=== PATIENT | male | born 1965 | race Caucasian/White ===

== ENCOUNTER 2020-05-06 19:54 | Inpatient (IN) ==
[2020-05-06] MEDS ORDERED: HYDROmorphone INJ 1 MG/ML SYRINGE IV PRN (20:26)
[2020-05-06] MEDS ORDERED: ONDANSETRON INJ 2 MG/ML 2 ML VIAL IV STA (20:26)
[2020-05-06] MEDS ORDERED: SODIUM CHLORIDE 0.9% 1000ML 1,000 ML IV SCH (20:30)
[2020-05-06 20:39] LABS: Basophils # (auto) 0.05 K/uL (0-0.2); Basophils % (auto) 0.3 %; Eosinophils # (auto) 0.28 K/uL (0-0.5); Eosinophils % (auto) 1.9 %; Hematocrit (blood only) 53.3 % (42-52); Hemoglobin 18.4 g/dL (14.0-18.0); Immature Granulocytes # (auto) 0.04 K/uL (0.00-0.02); Immature Granulocytes % (auto) 0.3 %; Lymphocytes # (auto) 2.07 K/uL (1.2-3.4); Lymphocytes % (auto) 13.8 %; Mean Corpuscular Hemoglobin 30.2 pg (25-34); Mean Corpuscular Hgb Conc 34.5 g/dL (32-36); Mean Corpuscular Volume 87.4 fL (80-100); Mean Platelet Volume 12.8 fL (7.4-10.4); Monocytes # (auto) 1.04 K/uL (0.11-0.59); Monocytes % (auto) 6.9 %; Neutrophils # (auto) 11.52 K/uL (1.4-6.5); Neutrophils % (auto) 76.8 %; Platelet Count 190 K/uL (130-400); RDW Coefficient of Variation 14.8 % (11.5-14.5); RDW Standard Deviation 47.2 fL (36.4-46.3)
[2020-05-06 20:47] LABS: Albumin Level 3.1 gm/dl (3.4-5.0); BUN Creatinine Ratio 18.5 (10-20); Calcium 8.5 mg/dl (8.5-10.1); Creatinine Clr Calc Pharmacy 84.9 ml/min; Est GFR (African American) 70.5; Est GFR (Non-African American) 60.9; Potassium 4.1 mmol/L (3.5-5.1)
[2020-05-06 20:50] LABS: Albumin Globulin Ratio 0.7 (0.9-2); Bilirubin,Total 0.6 mg/dl (0.2-1); Globulin 4.2 gm/dl (2.5-4.0); Total Protein 7.3 gm/dl (6.4-8.2)
[2020-05-06] MEDS ORDERED: IOVERSOL 100ml IV PRN (21:52)
--- NOTE | 2020-05-06 23:18 | Emergency Department Note ---
History of Present Illness General Chief complaint: Abdominal Pain Time Seen by Provider: 05/06/20 20:15 Source: patient, RN notes reviewed and old records reviewed Mode of arrival: ambulatory Limitations: no limitations History of Present Illness Provider complaint: Abdominal pain Onset (ago): day(s) 2 Location: abdomen Radiation: non-radiation Severity: moderate Pain Consistency: + colicky Maximum Pain Intensity: 5 Current Pain Intensity: 5 Quality: + aching Relieved By: + immobilization Exacerbated By: + movement Associated symptoms: + nausea/vomiting and + other (diarrhea); no chest pain, no cough, no fever/chills and no headaches Treatments prior to arrival: none This is a 55-year-old male who presents the emergency department complaining of abdominal pain. Patient describes the abdominal pain as burning. He reports that the pain radiates into his back. The patient has a history of Crowell's hernia surgery that was done at [place] approximately 2 years ago. He reports a issue with food poisoning approximately 1 week ago. Since that time the patient reports his abdominal pain became worse starting approximately 2 days ago. He has had nausea and vomiting associated with it along with diarrhea. He has not taken anything for the pain. Home Medications Home Medications Medication Instructions Recorded Confirmed Type aspirin 81 mg PO QAM 05/06/20 05/06/20 History atenolol 50 mg PO QAM 05/06/20 05/06/20 History dicyclomine 10 mg PO QID PRN 05/06/20 05/06/20 History lisinopril 20 mg PO QAM 05/06/20 05/06/20 History rosuvastatin 10 mg PO QAM 05/06/20 05/06/20 History Allergies Allergy/AdvReac Type Severity Reaction Status Date / Time No Known Allergies Allergy Verified 05/06/20 22:30 Past Med/Surg History Social History Preferred Language: Albanian Communication Ability: Effective [employer] Required: No Beliefs That Will Affect Care: None marital status: Current Living Situation: Spouse Feels Safe at Home: Yes Smoking Status: Current every day smoker Tobacco Type: cigarettes ; Hx Alcohol Use: Yes Alcohol type: other Hx Substance Use: No Review of Systems A total of 10 systems reviewed and were otherwise negative Physical Exam Vital Signs Vital Signs - 24 hr 05/06/20 20:13 05/06/20 20:38 05/06/20 23:00 Temperature 36.5 C Temperature Source Oral Pulse Rate 75 Pulse Rate [Apical] 85 Respiratory Rate 18 18 Blood Pressure 129/74 Blood Pressure [Right Arm] 132/66 Blood Pressure Mean 92 Blood Pressure Mean [Right Arm] 88 Pulse Oximetry 96 96 93 Oxygen Delivery Method Room Air Room Air Room Air Sepsis Recent Fever Within 48 Hours No Sepsis New/Unexplained Change in Mental Status No Sepsis Action Taken by Nursing No Action Required 05/07/20 00:01 Temperature Temperature Source Pulse Rate 71 Pulse Rate [Apical] Respiratory Rate 21 Blood Pressure 137/95 Blood Pressure [Right Arm] Blood Pressure Mean 116 Blood Pressure Mean [Right Arm] Pulse Oximetry 94 Oxygen Delivery Method Sepsis Recent Fever Within 48 Hours Sepsis New/Unexplained Change in Mental Status Sepsis Action Taken by Nursing VITAL SIGNS - Vital signs and nursing notes were reviewed. GENERAL - 55-year-old appearing stated age who is in no acute distress. Communicates well with provider and answers questions appropriately. SKIN - Without rashes. HEAD - NC/AT. EYES - PERRL with EOMI bilaterally. Sclera anicteric. Palpebral conjunctiva pink and moist with no injection noted. EARS - No deformities of external structures noted on gross examination bilaterally. No pain elicited with palpation of the tragus bilaterally. External auditory canals without discharge or otorrhea. Tympanic membranes pearly coelho without retraction or bulging. No fluid or purulent material visualized behind the TM. Handle of malleus, umbo, cone of light, pars tensa/flaccid all easily visualized. NOSE - Midline and without cyanosis. No epistaxis or purulent drainage noted. Septum midline without deviation or septal hematoma noted. MOUTH/OROPHARYNX - Without perioral cyanosis. Buccal mucosa pink and moist and without leukoplakia. Tongue midline with equal elevation of palate bilaterally. No tonsillar hypertrophy, erythema, or exudates noted. dentition noted. NECK - Neck with FROM. Supple to palpation. lymphadenopathy noted. No nuchal r igidity. LUNGS - Chest wall symmetric without accessory muscle use, intercostals retractions, or central cyanosis. Normal vesicular breath sounds CTA B/L. No wheezes, rales, or rhonchi appreciated. CARDIAC - RRR with S1/S2. No murmur, rubs, or gallops appreciated. ABDOMEN - Abdominal contour without pulsations or visible masses. BS normoactive all four quadrants. Distended abdomen, diffusely tender No tenderness, palpable masses, hepatosplenomegaly, or ascites noted. EXTREMITIES - No clubbing or peripheral cyanosis. No pretibial edema present. +3/5 radial, posterior tibial, and dorsalis pedis pulses palpated throughout. +5/5 strength noted in UE/LE bilaterally. NEUROLOGIC - Cranial nerves II through XII grossly intact. Sensory intact to light touch throughout. Patellar reflexes +2/4. PSYCH - A&Ox3 and cooperates fully with examiner. Pt is very pleasant and interacts well with examiner. Course Administered Medications Discontinued Medications Asp[facility] E[facility]ab) [facility] [place] Stop: 06/06/20 08:59 Last Admin: 05/07/20 08:38 Dose: 81 mg Documented by: [id number] Atenolol (Tenormin) [facility] [place] Stop: 06/06/20 08:59 Last Admin: 05/07/20 08:39 Dose: Not Given Documented by: [id number] Hydromorphone HCl (Dilaudid) 1 mg IV Q15M PRN PRN Reason: Pain Stop: 05/20/20 20:25 Last Admin: 05/06/20 20:46 Dose: 1 mg Documented by: [id number] Hydromorphone HCl (Dilaudid) 0.5 mg IV Q3H PRN PRN Reason: Pain Stop: 05/21/20 01:09 Last Admin: 05/07/20 02:27 Dose: 0.5 mg Documented by: [id number] Sodium Chloride (Nss 1000ml) 1,000 mls @ 999 mls/hr IV .Q1H1M YADIRA Stop: 05/06/20 21:30 Last Infusion: 05/06/20 23:02 Dose: 0 mls/hr Documented by: [id number] Admin: 05/06/20 20:46 Dose: 999 mls/hr Documented by: [id number] Dextrose/Sodium Chloride (D5w And Nss) 1,000 mls @ 125 mls/hr IV .Q8H YADIRA Stop: 06/06/20 01:09 Last Admin: 05/07/20 02:21 Dose: 125 mls/hr Documented by: [id number] Ioversol (Optiray 320 100ml) 94 ml IV ONCE PRN PRN Reason: Interaction Checking Stop: 05/10/20 21:51 Last Admin: 05/06/20 21:52 Dose: 94 ml Documented by: [id number] Ondansetron HCl (Zofran) 4 mg IV NOW STA Stop: 05/06/20 20:27 Last Admin: 05/06/20 20:46 Dose: 4 mg Documented by: [id number] Rosuvastatin Calcium (Crestor) 10 mg PO QAM [facility] Stop: 06/06/20 08:59 Last Admin: 05/07/20 08:38 Dose: 10 mg Documented by: [id number] Medical Decision Making Differential Diagnosis Appendicitis, testicular torsion, infections, diverticulitis, UTI, obstruction, mesenteric ischemia, aortic pathology, inflammatory bowel disease, renal colic, PUD, pancreatitis, biliary pathology, hernia, volvulus, constipation, as well as other pathologies. Medical Records Attestation: I reviewed the patient's medical records. Home Medications Current Medication List: was personally reviewed by me Laboratory Data Attestation: I reviewed the patient's lab results. Result diagrams: 05/07/20 07:06 05/07/20 07:06 Lab Results 05/06/20 05/06/20 05/06/20 Range/Units 20:08 20:08 23:15 WBC 15.00 H (4.8-10.8) K/uL RBC 6.10 (4.7-6.1) M/uL Hgb 18.4 H (14.0-18.0) g/dL Hct 53.3 H (42-52) % MCV 87.4 (80-100) fL MCH 30.2 (25-34) pg MCHC 34.5 (32-36) g/dL RDW Std Deviation 47.2 H (36.4-46.3) fL RDW Coeff of Shanon 14.8 H (11.5-14.5) % Plt Count 190 (130-400) K/uL MPV 12.8 H (7.4-10.4) fL Immature Gran % (Auto) 0.3 % Neut % (Auto) 76.8 % Lymph % (Auto) 13.8 % Ellis % (Auto) 6.9 % Eos % (Auto) 1.9 % Baso % (Auto) 0.3 % Neut # (Auto) 11.52 H (1.4-6.5) K/uL Lymph # (Auto) 2.07 (1.2-3.4) K/uL Ellis # (Auto) 1.04 H (0.11-0.59) K/uL Eos # (Auto) 0.28 (0-0.5) K/uL Baso # (Auto) 0.05 (0-0.2) K/uL Immature Gran # (Auto) 0.04 H (0.00-0.02) K/uL Sodium 139 (136-145) mmol/L Potassium 4.1 (3.5-5.1) mmol/L Chloride 109 H (98-107) mmol/L Carbon Dioxide 25 (21-32) mmol/L Anion Gap 5.0 (3-11) BUN 24 H (7-18) mg/dl Creatinine 1.31 (0.6-1.4) mg/dl Est Cr Clr Drug Dosing 84.9 ml/min Est GFR ( Amer) 70.5 Est GFR (Non-Af Amer) 60.9 BUN/Creatinine Ratio 18.5 (10-20) Glucose 101 H (70-99) mg/dl POC Lactic Acid Prem 0.68 L (0.90-1.70) mmol/L Calcium 8.5 (8.5-10.1) mg/dl Total Bilirubin 0.6 (0.2-1) mg/dl AST 20 (15-37) U/L ALT 30 (12-78) U/L Alkaline Phosphatase 84 (45-117) U/L Total Protein 7.3 (6.4-8.2) gm/dl Albumin 3.1 L (3.4-5.0) gm/dl Globulin 4.2 H (2.5-4.0) gm/dl Albumin/Globulin Ratio 0.7 L (0.9-2) Lipase 87 (73-393) U/L Urine Color Urine Appearance (Clear) Urine pH (4.5-7.5) Ur Specific [place] (1.000-1.030) Urine Protein (Negative) Urine Glucose (UA) (Negative) Urine Ketones (Negative) Urine Blood (Negative) Urine Nitrite (Negative) Urine Bilirubin (Negative) Urine Urobilinogen (Negative) Ur Leukocyte Esterase (Negative) Urine WBC (Auto) (0-5) /hpf Urine RBC (Auto) (0-4) /hpf U Hyaline Cast (Auto) (0-5) /lpf U Epithel Cells (Auto) (0-5) /lpf Urine Bacteria (Auto) (Negative) 05/07/20 Range/Units 00:10 WBC (4.8-10.8) K/uL RBC (4.7-6.1) M/uL Hgb (14.0-18.0) g/dL Hct (42-52) % MCV (80-100) fL MCH (25-34) pg MCHC (32-36) g/dL RDW Std Deviation (36.4-46.3) fL RDW Coeff of Shanon (11.5-14.5) % Plt Count (130-400) K/uL MPV (7.4-10.4) fL Immature Gran % (Auto) % Neut % (Auto) % Lymph % (Auto) % Ellis % (Auto) % Eos % (Auto) % Baso % (Auto) % Neut # (Auto) (1.4-6.5) K/uL Lymph # (Auto) (1.2-3.4) K/uL Ellis # (Auto) (0.11-0.59) K/uL Eos # (Auto) (0-0.5) K/uL Baso # (Auto) (0-0.2) K/uL Immature Gran # (Auto) (0.00-0.02) K/uL Sodium (136-145) mmol/L Potassium (3.5-5.1) mmol/L Chloride (98-107) mmol/L Carbon Dioxide (21-32) mmol/L Anion Gap (3-11) BUN (7-18) mg/dl Creatinine (0.6-1.4) mg/dl Est Cr Clr Drug Dosing ml/min Est GFR ( Amer) Est GFR (Non-Af Amer) BUN/Creatinine Ratio (10-20) Glucose (70-99) mg/dl POC Lactic Acid Prem (0.90-1.70) mmol/L Calcium (8.5-10.1) mg/dl Total Bilirubin (0.2-1) mg/dl AST (15-37) U/L ALT (12-78) U/L Alkaline Phosphatase (45-117) U/L Total Protein (6.4-8.2) gm/dl Albumin (3.4-5.0) gm/dl Globulin (2.5-4.0) gm/dl Albumin/Globulin Ratio (0.9-2) Lipase (73-393) U/L Urine Color Yellow Urine Appearance Clear (Clear) Urine pH 5.0 (4.5-7.5) Ur Specific [place] > 1.045 H (1.000-1.030) Urine Protein 2+ H (Negative) Urine Glucose (UA) Negative (Negative) Urine Ketones Trace H (Negative) Urine Blood Trace H (Negative) Urine Nitrite Negative (Negative) Urine Bilirubin Negative (Negative) Urine Urobilinogen Negative (Negative) Ur Leukocyte Esterase Negative (Negative) Urine WBC (Auto) 1-5 (0-5) /hpf Urine RBC (Auto) 0-4 (0-4) /hpf U Hyaline Cast (Auto) 5-10 H (0-5) /lpf U Epithel Cells (Auto) 5-10 H (0-5) /lpf Urine Bacteria (Auto) Negative (Negative) Imaging Data Radiologist's Impression: CT abdomen pelvis with contrast: Distended small bowel loops with air-fluid level subjacent to the anterior abdominal wall measuring up to 4 cm suggestive of low-grade obstruction. Transition point appears to be along the ventral abdominal wall where there are multiple ventral hernias containing the margins of multiple small bowel loops. No evidence of bowel necrosis or extraluminal air. Somewhat nodular liver contour which could represent cirrhosis. Mildly aneurysmal abdominal aorta measuring up to 3.7 cm MDM Narrative This is a 55-year-old male who presents emergency department complaining of abdominal pain. Serial abdominal examinations were performed this patient in the emergency department and at no time the patient exhibited surgical abdomen. He does have an elevation his white blood cell count of 15,000. He was sent for CAT scan abdomen pelvis. This is concerning for an incarcerated hernia causing small bowel obstruction. Due to this I did discuss the case with the surgeon on-call. In the meantime the patient had an NG tube placed and was given Dilaudid for his pain. Repeat examination revealed improvement the patient symptoms. I did discuss the case with the hospitalist service who did agree to meet the patient. Patient is in agreement with the treatment plan. Patient was seen and evaluated as above in room C2. Review was performed of nursing notes and vital signs. I did review pertinent previous visits and patient history. After obtaining a thorough history and physical examination the above work up was performed. While in the department, I personally reevaluated the patient several times and each time the patient was found to be resting comfortably. The patient was educa armida upon management, educated upon todays findings/results, educated upon importance of follow up from today's visit, educated upon symptoms in which to return, had questions answered prior to discharge, verbalized understanding, and was discharged home in good condition. An order was placed for continuous cardiac monitoring. The monitor shows a rate of 85 with Normal Sinus rhythm. I attest that I have personally reviewed the patient medication list. The patient was evaluated during the global COVID-19 pandemic, and that diagnosis was suspected/considered upon their initial presentation. Their evaluation, treatment and testing was consistent with current guidelines for patients who present with complaints or symptoms that may be related to COVID- 19. Impression & Plan Abdominal pain, Small bowel obstruction, Hernia Discharge Plan Visit Data *Final* Discharge Date/Time: 05/07/20 00:42 Chief Complaint: Abdominal Pain ED Provider: Jason Montero Discharge Problem: Abdominal pain, Small bowel obstruction, Hernia Patient Disposition: Admitted As Inpatient Condition: Good Discharge Instructions Interventions: ED Discharge Assessment Last Done: 05/07/20 00:42 Discharge Problem: Abdominal pain Qualifiers: Abdominal location: unspecified location Qualified Code(s): R10.9 - Unspecified abdominal pain
--- NOTE | 2020-05-06 23:23 | Surgery Consultation ---
Date of Consultation May 06, 2020 Assessment & Plan (1) Small bowel obstruction: * -this is likely due to ventral hernia * pt. will be admitted by medical service * ghosh not appear to require urgent surgical intervention * keep pt. npo and hydrate with IVF * repeat KUB in am * pt. has refused an NGT; I advised him that if he has any further N/V this modality will be required * * the above plan was discussed with Dr. Anderson Supervising Physician Co-Signing Physician Notes Dominick been seen multiple times since February with abdominal painEtc. keeps him from work he is tired of feeling this abdominal pain and herniaRick has had it repaired one time in the past [facility] not sure whether or not the use mesh This morning his abdomen is completely benign do not feel any hernia or any defects in the epigastric or the midline incision he is passing flatus he is hungry Recommended that he go to a tertiary center to electively have this hernia repaired since he is high chance of recurrence of probably 40% he is agreeable to that but does not want to go to [facility] he certainly can be seen as an outpatientAnd make appropriate arrangements for elective repair At this time I will start him on a diet low fiber diet and if he tolerates diet he can certainly be dischargedThe above recommendations were discussed with the medical serviceThe above recommendations were discussed with the medical service History of Present Illness History of Present Illness 55 year old male presented to [facility] ED due to worsening abdominal pain. He notes he has had pain off and on for "a few months." He had a history of open AAA repair and subsequently developed an incisional hernia that was surgically repaired. Due to his current hx. of abdominal pain he has tatum seen by a surgeon in [place] who was entertaining surgical repair of a ventral hernia. The pain became so severe that the came to the ED tonight. He has N/V yesterday but has not had any since. No fevers, shakes, chills.. He notes his BMs have ttaum loose and most recently one was here in the ED. No melena or BRBPR noted. He had not been eating much and only ate a small amount today. The pain comes and goes without palliative or provocative factors. The pain sometimes radiates to his back. In the ED he had a CT of the abdomen that showed a Crowell hernia. He was afebrile and not tachycardic. BP was stable. WBC was 15K. He was in no distress at the time of my exam. The treating ED physician has ordered an NGT, but the patient became agitated at the mention of this and refused this modality Allergies Allergy/AdvReac Type Severity Reaction Status Date / Time No Known Allergies Allergy Verified 05/06/20 22:30 Home Medications Home Medications Medication Instructions Recorded Confirmed Type aspirin 81 mg PO QAM 05/06/20 05/06/20 History atenolol 50 mg PO QAM 05/06/20 05/06/20 History dicyclomine 10 mg PO QID PRN 05/06/20 05/06/20 History lisinopril 20 mg PO QAM 05/06/20 05/06/20 History rosuvastatin 10 mg PO QAM 05/06/20 05/06/20 History Patient History Social History Preferred Language: Macedonian Communication Ability: Effective [employer] Customer Service Representative Required: No Beliefs That Will Affect Care: None Current Living Situation: Spouse Other Information That Helps Us Care for You: No Feels Safe at Home: Yes Safety Concerns: Feels Safe At This Time Smoking Status: Current every day smoker Tobacco Type: cigarettes ; Hx Alcohol Use: Yes Alcohol type: other Hx Substance Use: No Review of Systems Constitutional: see below, no fever and no chills Eyes: no diplopia Ear, Nose, Mouth, Throat: no ear pain Respiratory: no cough and no dyspnea Cardiovascular: no chest pain Gastrointestinal: + abdominal pain, + vomiting (yesterday) and + diarrhea/loose stools; no coffee ground emesis Genitourinary: no dysuria Musculoskeletal: no back pain Integumentary: no rash Neurologic: no localized weakness Physical Exam Constitutional: well developed and well nourished; no acute distress Eyes: no conjunctival abnormality ENMT: Ears: no hearing impairment Neck: trachea midline Respiratory: normal respiratory effort; no respiratory distress and no labored breathing Cardiovascular: Rate/Rhythm: regular rate and regular rhythm Gastrointestinal (Abdomen): abdomen is rotund with hypoactive BS, no rebound tenderness or guarding, pain with dep palpation greatest in the midline just inferior to the umbilicus, no fascial defects noted. A well healed midline incision is noted as well as a well healed transverse incision below the umbilicus Musculoskeletal: * no calf tendernss Skin: no rashes, warm and dry Neurologic: moves all extremities Results & Data Vital Signs (Past 12 Hours) Vital Signs Temp Pulse Pulse Resp BP BP Pulse Ox 05/06/20 23:00 85 18 132/66 93 05/06/20 20:38 96 05/06/20 20:13 36.5 C 75 18 129/74 96 PG Care Time/CCT Total # of Minutes Spent Total Time Spent with Patient: Total time spent is greater than 50% in coordination of care (as documented) at patient's floor/unit and/or counseling patient: Coding Level of Care Code 95737 Inpt Consult Level 5 Diagnoses Small bowel obstruction K56.609
[2020-05-07 00:27] LABS: Appearance Urine Clear (Clear); Bacteria Urine Automated Negative (Negative); Bilirubin Urine Negative (Negative); Blood Urine Trace (Negative); Color Urine Yellow; Glucose Urine UA Negative (Negative); Ketones Urine Trace (Negative); Leukocyte Esterase Urine Negative (Negative); Nitrite Urine Negative (Negative); Protein Urine 2+ (Negative); RBC Urine Automated 0-4 /hpf (0-4); Specific Gravity Urine > 1.045 (1.000-1.030); Urobilinogen Urine Negative (Negative)
[2020-05-07] MEDS ORDERED: NITROGLYCERIN SL 0.4 MG/TAB TAB SL PRN (01:10)
[2020-05-07] MEDS ORDERED: ACETAMINOPHEN 325 MG TAB PO PRN (01:10)
[2020-05-07] MEDS ORDERED: DICYCLOMINE HCL 10 MG CAP PO PRN (01:10)
[2020-05-07] MEDS ORDERED: D5W AND NSS 1,000 ML IV SCH (01:10)
[2020-05-07] MEDS ORDERED: ONDANSETRON INJ 2 MG/ML 2 ML VIAL IV PRN (01:10)
[2020-05-07] MEDS ORDERED: HYDROmorphone INJ 0.5 MG/0.5 ML SYR IV PRN (01:10)
[2020-05-07] MEDS ORDERED: HydrALAZINE HCL 20 MG/ML VIAL IV PRN (01:10)
--- NOTE | 2020-05-07 02:09 | History and Physical Report ---
DATE OF ADMISSION: 05/07/2020 CHIEF COMPLAINT: Abdominal pain. HISTORY OF PRESENT ILLNESS: This is a 55-year-old male with past medical history significant for hyperlipidemia, hypertension, obesity, history of hematuria, history of status post abdominal aortic aneurysm repair, tobacco use disorder, periumbilical hernia, presents with abdominal pain. The patient says he has this abdominal pain since mid January, it is continuing getting worse. Yesterday, the patient had nausea and vomiting. In the ER, he said he moved his bowels, which was diarrhea. Denies any fever, chills. No shortness of breath, no chest pain. No headache, no blurred vision, no earache, no runny nose, no sore throat, no cough, no dysphagia. Resting comfortably and hemodynamically stable. ALLERGIES: No known drug allergies. PAST MEDICAL HISTORY: As mentioned above. PAST SURGICAL HISTORY: Abdominal aortic aneurysm repair in 2012. Dental surgery, hydrocele repair. MEDICATIONS: The patient is on aspirin 81 mg p.o. daily, atenolol 50 mg p.o. q.a.m., dicyclomine 10 mg p.o. q.i.d. p.r.n., lisinopril 20 mg p.o. a.m., atorvastatin 10 mg p.o. a.m. FAMILY HISTORY: Significant for brother has diabetes. Mother has diabetes. Father has hypertension. SOCIAL HISTORY: , smokes 1 pack a day for last 31 years. Alcohol 2-3 beers per month. No drug use. REVIEW OF SYMPTOMS: As per HPI. Rest of review of symptoms negative. PHYSICAL EXAMINATION: GENERAL: The patient is obese, not in acute distress. VITAL SIGNS: Temperature 36.5, pulse 60, respiratory rate 17, blood pressure 110/71, oxygen 91% on room air. HEENT: No pallor, no icterus. Pupils equal, round, reactive to light. NECK: No JVD, no neck mass, no carotid bruit. CARDIOVASCULAR: S1, S2 heard, regular rate and rhythm, no murmur, no gallop. RESPIRATORY SYSTEM: Normal AP diameter. No accessory muscle use. No wheezing, no crackles. ABDOMEN: Soft, bowel sounds sluggish. Diffuse tender. Mild guarding, no rigidity. CENTRAL NERVOUS SYSTEM: Cranial nerves II-XII grossly intact. Nonfocal. EXTREMITIES: No edema, no erythema. LABORATORY DATA: WBC 15, hemoglobin 15.4, hematocrit 53.3, platelets 190. Sodium 139, potassium 4.1, chloride 109, bicarbonate 25, BUN 24, creatinine 1.31, serum glucose 101. Point of care lactic acid 0.6, calcium 8.5, total bilirubin 0.6, AST 20, ALT 30, alkaline phosphatase 84, lipase 87. Urinalysis +2 protein. IMAGING: CT of abdomen and pelvis preliminary report shows distended small bowel loops with air fluid levels adjacent to the anterior abdominal wall measuring up to 4 cm suggestive of low grade obstruction. Transition point appears to be along the ventral abdominal wall with multiple ventral hernias containing the margins of multiple small bowel loops, Crowell's hernias. No evidence of bowel necrosis or extraluminal air, abdominal aorta measuring up to 3.7 cm. EKG showing new AFib with PVCs at a rate of 96. ASSESSMENT AND PLAN: This is a 55-year-old male who presents with abdominal pain, found to have small-bowel obstruction. 1. Small-bowel obstruction: Possible of Crowell's hernia, ventral hernia causing the problems, seen by surgery. No urgent procedure recommended. We will place him n.p.o., IV fluids, IV antiemetics prn, IV Dilaudid p.r.n. The patient refused NG tube. Currently resting comfortably. Await further surgical opinion in the a.m. Follow up with KUB. 2. Atrial fibrillation, seems to be new onset: We will get echocardiogram. Hold on anticoagulation currently for any possible procedures. Await cardiac input. Continue atenolol, currently rates are under control. 3. Hypertension. Continue atenolol. Hold lisinopril for possible procedure, IV hydralazine p.r.n. 4. Hyperlipidemia: On statin. 5. History of abdominal aortic aneurysm status post repair. 6. Deep venous thrombosis prophylaxis: Sequential compression devices. 7. Disposition: Close monitoring in the med/surg tele. Level 1 full code. MTDD
--- NOTE | 2020-05-07 06:16 | CT Scan Report ---
CT abd pelvis IV con only CT DOSE: 1523.26 mGy.cm HISTORY: Pain Pt c/o diffuse abd pain TECHNIQUE: Multiaxial CT images of the abdomen and pelvis were performed following the use of intrave nous contrast. A dose lowering technique was utilized adhering to the principles of ALARA. COMPARISON STUDY: None. FINDINGS: Lung bases are clear. Mild hepatic cirrhosis. Kidneys are negative for hydronephrosis. Atherosclerotic change and ectasia of the abdominal aorta. Several small partial bowel containing ventral and periumbilical hernias. Partial small bowel obstruction potentially relating to the ventral hernia as previously described. No significant colonic distention. No evidence for pneumatosis. Slight bowel wall edema. Bladder is midline. No free fluid within the pe lvic cul-de-sac. IMPRESSION: 1. Several partial bowel containing ventral hernias pain causing partial small bowel obstructive gerber ge. 2. Slight reactive small bowel wall edematous change 3. Mild hepatic cirrhosis. ACT 112: Negative or not required by law. The above report was generated using voice recognition software. It may contain grammatical, syntax or spelling errors. Electronically signed by: Thai Ramires M.D. 05/07/2020 6:15 AM
[2020-05-07 06:21] VITALS: O2SAT 92
[2020-05-07 07:19] LABS: Basophils # (auto) 0.05 K/uL (0-0.2); Basophils % (auto) 0.4 %; Eosinophils # (auto) 0.38 K/uL (0-0.5); Eosinophils % (auto) 3.2 %; Hematocrit (blood only) 49.8 % (42-52); Hemoglobin 15.9 g/dL (14.0-18.0); Immature Granulocytes # (auto) 0.03 K/uL (0.00-0.02); Immature Granulocytes % (auto) 0.3 %; Lymphocytes # (auto) 2.83 K/uL (1.2-3.4); Lymphocytes % (auto) 24.1 %; Mean Corpuscular Hemoglobin 28.9 pg (25-34); Mean Corpuscular Hgb Conc 31.9 g/dL (32-36); Mean Corpuscular Volume 90.4 fL (80-100); Mean Platelet Volume 12.7 fL (7.4-10.4); Monocytes # (auto) 1.31 K/uL (0.11-0.59); Monocytes % (auto) 11.1 %; Neutrophils # (auto) 7.16 K/uL (1.4-6.5); Neutrophils % (auto) 60.9 %; Platelet Count 184 K/uL (130-400); Red Blood Count 5.51 M/uL (4.7-6.1); White Blood Count 11.76 K/uL (4.8-10.8)
--- NOTE | 2020-05-07 07:30 | XRay Report ---
XR KUB/Abdomen 1 view CLINICAL HISTORY: partial SBO nausea. Pain. COMPARISON STUDY: CT 05/06/2020 FINDINGS: Moderately improved bowel pattern. Nonobstructive at this time. No secondary evidence for f ree air. IMPRESSION: Bowel pattern is now nonobstructive. ACT 112: Negative or not required by law. The above report was generated using voice recognition software. It may contain grammatical, syntax or spelling errors. Electronically signed by: Thai Ramires M.D. 05/07/2020 7:29 AM
[2020-05-07 07:43] LABS: BUN Creatinine Ratio 17.8 (10-20); Creatinine Clr Calc Pharmacy 106.8 ml/min; Est GFR (African American) 93.2; Est GFR (Non-African American) 80.5; Potassium 3.9 mmol/L (3.5-5.1)
[2020-05-07 08:19] VITALS: BP 124/85; TEMP 98.6
--- NOTE | 2020-05-07 08:21 | Hospitalist Progress Note ---
Date of Service May 07, 2020 Assessment & Plan (1) Abdominal pain: (2) Small bowel obstruction: (3) Hernia: ASSESSMENT AND PLAN: This is a 55-year-old male who presents with abdominal pain, found to have small-bowel obstruction. 1. Small-bowel obstruction: Resolved, +Crowell's hernia, ventral hernia causing the problems, seen by surgery. No urgent procedure recommended. Rec [place] or [place] for elective repair, resume diet. The patient refused NG tube. Currently resting comfortably. Surgical opinion can DC. Follow up with KUB-No Bowel Obstruction. Patient is passing gas and had a BM, DC home 2. Atrial fibrillation, Now in NSR 3. Hypertension. Continue atenolol. Hold lisinopril for possible procedure, IV hydralazine p.r.n. 4. Hyperlipidemia: On statin. 5. History of abdominal aortic aneurysm status post repair. 6. Deep venous thrombosis prophylaxis: Sequential compression devices. 7. Disposition: DC home. Admission and Anticipated Discharge Date Admission Date: May 07, 2020 Results & Data Results & Data ([facility]) Vital Signs (Past 12 Hours) Vital Signs Temp Pulse Pulse Pulse Resp BP BP 05/07/20 03:14 36.7 C 62 18 92/53 L 05/07/20 01:45 54 L 05/07/20 01:10 05/07/20 01:09 36.9 C 68 22 129/82 05/07/20 00:40 60 17 110/71 05/07/20 00:30 62 19 94/63 L 05/07/20 00:01 71 21 137/95 05/06/20 23:00 85 18 132/66 05/06/20 20:38 Pulse Ox Pulse Ox 05/07/20 03:14 91 05/07/20 01:45 05/07/20 01:10 92 05/07/20 01:09 92 05/07/20 00:40 91 05/07/20 00:30 92 05/07/20 00:01 94 05/06/20 23:00 93 05/06/20 20:38 96 (1) Abdominal pain Abdominal location: unspecified location Qualified Code(s): R10.9 - Unspecified abdominal pain
--- NOTE | 2020-05-07 08:28 | Discharge Summary ---
Date of Service May 07, 2020 Admission HPI Per Admitting Provider 55-year-old male with past medical history significant for hyperlipidemia, hypertension, obesity, history of hematuria, history of status post abdominal aortic aneurysm repair, tobacco use disorder, periumbilical hernia, presents with abdominal pain. The patient says he has this abdominal pain since mid January, it is continuing getting worse. Yesterday, the patient had nausea and vomiting. In the ER, he said he moved his bowels, which was diarrhea. Denies any fever, chills. No shortness of breath, no chest pain. No headache, no blurred vision, no earache, no runny nose, no sore throat, no cough, no dysphagia. Resting comfortably and hemodynamically stable. Admission Exam Per Admitting Provider GENERAL: The patient is obese, not in acute distress. VITAL SIGNS: Temperature 36.5, pulse 60, respiratory rate 17, blood pressure 110/71, oxygen 91% on room air. HEENT: No pallor, no icterus. Pupils equal, round, reactive to light. NECK: No JVD, no neck mass, no carotid bruit. CARDIOVASCULAR: S1, S2 heard, regular rate and rhythm, no murmur, no gallop. RESPIRATORY SYSTEM: Normal AP diameter. No accessory muscle use. No wheezing, no crackles. ABDOMEN: Soft, bowel sounds sluggish. Diffuse tender. Mild guarding, no rigidity. CENTRAL NERVOUS SYSTEM: Cranial nerves II-XII grossly intact. Nonfocal. EXTREMITIES: No edema, no erythema. Principal Diagnosis 1. Small-bowel obstruction: 2. Atrial fibrillation, Now in NSR 3. Hypertension 4. Hyperlipidemia 5. History of abdominal aortic aneurysm status post repair. Discharge Exam Physical Exam Gen-AAO x 3, NAD, Afebrile Head-NCAT, EOMI, PERRLA, Anicteric Sclera, No Posterior Pharyngeal Erythema Neck-Supple, No JVD, No Thyromegaly, No Masses, No LAD, No Bruits Lungs-Clear to Auscultation Bilaterally, No Rales, No Rhonchi, No Wheezing, No Crepitus Chest-No S4, +S1, +S2, No S3, No Murmurs, No Rubs, No Gallops, No Ectopy Abdomen-Soft, Bowel Sounds Present, Tender, Non Distended, No Hepatomegaly, No Splenomegaly, No Palpable Masses, No Rebound, No Rigidity, No Guarding Musculoskeletal-Full Range of Motion Bilaterally, No CVAT Extremities-No Cyanosis, No Clubbing, No Edema Nuero-Cranial Nerves II-XII grossly intact, Motor WNL, DTRs WNL, Strength WNL, Non Focal Psych-Normal Mood Discharge Data Allergies Allergy/AdvReac Type Severity Reaction Status Date / Time No Known Allergies Allergy Verified 05/06/20 22:30 Consultations 05/06/20 22:20 Consult General Surgery Stat 05/06/20 22:31 ED Decision to Admit Stat 05/06/20 22:45 ED Decision to Admit Stat 05/07/20 01:10 Consult Case Management - Discharge Planning Routine 05/07/20 08:00 Consult Cardiology Routine Ordered Studies 05/06/20 20:26 CT abd pelvis IV con only Urgent Current Diagnoses Unspecified abdominal hernia without obstruction or gangrene (05/07/20) Unspecified intestinal obstruction, unspecified as to partial versus complete obstruction (05/07/20) Unspecified abdominal pain (05/07/20) Allergies No Known Allergies Allergy (Verified 05/06/20 22:30) Height/Weight/Isolation Height 5 ft 11 in Weight 122.3 kg Chemistry 05/06/20 05/07/20 20:08 07:06 Sodium 139 141 Potassium 4.1 3.9 Chloride 109 H 111 H Carbon Dioxide 25 29 Anion Gap 5.0 2.0 L BUN 24 H 19 H Creatinine 1.31 1.04 Glucose 101 H 92 Urinalysis 05/07/20 00:10 Urine Color Yellow Urine Appearance Clear Urine pH 5.0 Ur Specific Mission > 1.045 H Urine Protein 2+ H Urine Glucose (UA) Negative Urine Ketones Trace H Urine Blood Trace H Urine Nitrite Negative Urine Bilirubin Negative Hospital Course (1) Abdominal pain: (2) Small bowel obstruction: (3) Hernia: ASSESSMENT AND PLAN: This is a 55-year-old male who presents with abdominal pain, found to have small-bowel obstruction. 1. Small-bowel obstruction: Resolved, +Crowell's hernia, ventral hernia causing the problems, seen by surgery. No urgent procedure recommended. Rec [place] or [place] for elective repair, resume diet. The patient refused NG tube. Currently resting comfortably. Surgical opinion can DC. Follow up with KUB-No Bowel Obstruction. Patient is passing gas and had a BM, DC home 2. Atrial fibrillation, Now in NSR 3. Hypertension. Continue atenolol. Hold lisinopril for possible procedure, IV hydralazine p.r.n. 4. Hyperlipidemia: On statin. 5. History of abdominal aortic aneurysm status post repair. Total Time Total Time Spent Total Time Spent (In Minutes): 45 mins Total Time Includes: Examination of the Patient, Discharge Planning, Medication Reconciliation and Communication With Other Providers Discharge Plan Discharge Items Patient Disposition: Home - Self-Care Reason For Visit: ABDOMINAL PAIN Discharge Diagnosis: 1. Small-bowel obstruction: 2. Atrial fibrillation, Now in NSR 3. Hypertension 4. Hyperlipidemia 5. History of abdominal aortic aneurysm status post repair. Condition on Discharge: Good Activity: Resume your previous activity Lifting: Gradually increase as tolerated Bathing: No limitations Sexual Activity: When tolerated Exercise/Sports: None Driving/Machine Use: No limitations Weightbearing: Full weightbearing Non-emergency contact: Primary Care Provider Call non-emergency contact if: you have any medication questions Follow-up/Referrals: PCP,NO [Primary Care Provider] - Diet: Gluten Free and Heart Healthy Addtl Attending Provider Instructions: Diet per surgery Follow up in [place] or at [facility] [address] for elective Hernia repair Pending Studies at Discharge: No Stand-Alone Forms: [facility], Smoking Cessation Medications and DC Order Prescriptions: Continued lisinopril 20 mg tablet 20 mg PO QAM RF: 0 dicyclomine 10 mg capsule 10 mg PO QID PRN (Reason: Abdominal Pain) RF: 0 atenolol 50 mg tablet 50 mg PO QAM RF: 0 rosuvastatin 10 mg tablet 10 mg PO QAM RF: 0 aspirin 81 mg Tablet,Delayed Release (Dr/Ec) 81 mg PO QAM RF: 0 Discharge Orders: Discharge Order (Routine); Ordered 05/07/20 Ordered By: Eran Coleman Admission Data Admit Date/Time: 05/07/20 00:18 Attending Provider: Eran Coleman Admit Provider: Jose De Jesus Hitchcock Primary Care Provider: PCP,NO Other Providers: Jose De Jesus Hitchcock ; Josh Anderson ; Neto Santiago ; Eliel iRvas ; Segun Faye ; Yassine López ; Lc King ; Thai Trevino ; Alicia Uribe ; Sadie Fay ; Dane Soto
[2020-05-07] MEDS ORDERED: ROSUVASTATIN CALCIUM 10 MG TAB PO SCH (09:00)
[2020-05-07] MEDS ORDERED: ATENOLOL 50 MG TABLET PO SCH (09:00)
[2020-05-07] MEDS ORDERED: ASPIRIN 81 MG ECTAB PO SCH (09:00)
[2020-05-07 10:04] VITALS: PULSE 68
--- NOTE | 2020-05-07 10:48 | Electrocardiogram Report ---
Test Reason : Blood Pressure : / mmHG Vent. Rate : 075 BPM Atrial Rate : 075 BPM P-R Int : 154 ms QRS Dur : 086 ms QT Int : 368 ms P-R-T Axes : 025 -03 059 degrees QTc Int : 410 ms Sinus rhythm with Premature atrial complexes Possible Left atrial enlargement Borderline ECG No previous ECGs available Confirmed by Eliecer Manzo ([id number]) on 05/07/2020 10:48:21 AM Referred By: REFERRED SELF Confirmed By:Catarino Manzo
--- NOTE | 2020-05-07 11:02 | Electrocardiogram Report ---
Test Reason : Blood Pressure : / mmHG Vent. Rate : 096 BPM Atrial Rate : 258 BPM P-R Int : 000 ms QRS Dur : 084 ms QT Int : 320 ms P-R-T Axes : 000 018 027 degrees QTc Int : 404 ms Sinus rhythm with frequent and consecutive atrial ectopy Abnormal ECG When compared with ECG of 06-MAY-2020 20:03, (unconfirmed) There is more frequent atrial ectopy Confirmed by Eliecer Manzo ([id number] on 05/07/2020 11:01:59 AM Referred By: REFERRED SELF Confirmed By:Catarino Manzo
== END 2020-05-07 12:01 | disposition home or self-care (01) | DRG 395 ==
LOC: ED 19:54 → 2W 05-07 00:18
DX: E78.5 Hyperlipidemia, unspecified; K43.6 Other and unspecified ventral hernia with obstruction, without gangrene; I10 Essential (primary) hypertension; I48.91 Unspecified atrial fibrillation; Z79.82 Long term (current) use of aspirin